=== PATIENT | male | born 1965 | race African-American/Black ===

== ENCOUNTER 2017-01-04 00:19 | Emergency (ER) | payer MEDICAID, OTHER ==
[~2017-01-04] VITALS: Ht 180.3 cm; Wt 90.0 kg
[2017-01-04] MEDS ORDERED: KETOROLAC 60MG/2ML VIAL IM ONE (04:00)
[2017-01-04 05:45] VITALS: BP 130/87
== END 2017-01-04 06:20 | disposition home or self-care (01) ==
LOC: ER 00:29
DX: S46.912A Strain of unspecified muscle, fascia and tendon at shoulder and upper arm level, left arm, initial encounter (principal); Y35.893A Legal intervention involving other specified means, suspect injured, initial encounter; Y93.89 Activity, other specified; Y92.488 Other paved roadways as the place of occurrence of the external cause
CPT/HCPCS: 96372; 99283; J1885

== ENCOUNTER 2023-03-12 14:08 | Emergency (ER) | payer MEDICAID, OTHER ==
[~2023-03-12] VITALS: Ht 180.3 cm; Wt 93.0 kg
[2023-03-12 14:18] VITALS: O2SAT 99
[2023-03-12] MEDS ORDERED: IBUP-2029 MT (16:20)
[2023-03-12] MEDS ORDERED: HYDROCODONE/ACETAMINOPHEN 5/325MG TABLET PO ONE (16:30)
[2023-03-12 17:20] VITALS: BP 147/103
[2023-03-12] MEDS ORDERED: T3 PO (17:32)
[2023-03-12 17:53] VITALS: PULSE 83; RESP 16; TEMP 98.4
== END 2023-03-12 17:54 | disposition home or self-care (01) ==
LOC: ER 14:08
DX: S42.91XA Fracture of right shoulder girdle, part unspecified, initial encounter for closed fracture (principal); W18.30XA Fall on same level, unspecified, initial encounter; Y93.89 Activity, other specified; Y92.89 Other specified places as the place of occurrence of the external cause; Y99.8 Other external cause status
CPT/HCPCS: 73030; 99283; A4565

== ENCOUNTER 2025-01-05 18:42 | Emergency (ER) | payer SELFPAY ==
[~2025-01-05] VITALS: Ht 180.3 cm; Wt 107.0 kg
[~2025-01-05 18:42] MED LIST: IBUP-1455 MT; T3 PO
[2025-01-05 18:48] VITALS: TEMP 37.1; O2SAT 98
[2025-01-05 20:01] VITALS: BP 139/104; PULSE 78; RESP 19; O2SAT 98
[2025-01-05] MEDS: ACETAMINOPHEN 325MG TABLET PO ONE (20:03)
[2025-01-05] MEDS: LIDOCAINE 5% PATCH TOP SCH (20:03)
[2025-01-05] MEDS: DEXAMETHASONE 4MG TABLET PO ONE (20:03)
[2025-01-05] MEDS ORDERED: LIDO-53 TP (20:46)
== END 2025-01-05 21:22 | disposition home or self-care (01) ==
LOC: ER 18:42
DX: M54.2 Cervicalgia (principal); M25.512 Pain in left shoulder; Z59.02 Unsheltered homelessness
CPT/HCPCS: 99284; J8540